=== PATIENT | male | born 1985 | race African-American/Black ===

== ENCOUNTER 2019-01-08 04:32 | Emergency (ER) | payer OTHER ==
[~2019-01-08] VITALS: Ht 165.1 cm; Wt 70.3 kg
[2019-01-08 04:32] VITALS: BP 151/96
--- NOTE | 2019-01-08 04:32 | NUR ---
PT WEN HEBERT. TAKEN TO BED 12
--- NOTE | 2019-01-08 04:40 | NUR ---
Dr. Lopez examining patient.
[2019-01-08] MEDS ORDERED: NACL 0.9% 500 ML IV SCH (04:49)
[2019-01-08] MEDS ORDERED: diphenhydrAMINE 50 MG/ML VIAL IVP ONE (04:50)
[2019-01-08 05:40] LABS: BASOPHILS % (AUTO) 0.3 % (0.0-2.0); EOSINOPHILS % (AUTO) 0.4 % (0.0-4.0); HEMATOCRIT 52.8 % (36-52); HEMOGLOBIN 17.1 g/dL (12.0-18.0); LYMPHOCYTES # (AUTO) 2.5 K/uL (2.0-11.5); LYMPHOCYTES % (AUTO) 21.3 % (20.5-51.1); MEAN CORPUSCULAR HEMOGLOBIN 31 pg (27-31); MEAN CORPUSCULAR HGB CONC 32 g/dL (33-37); MONOCYTES # (AUTO) 0.9 K/uL (0.8-1.0); MONOCYTES % (AUTO) 7.8 % (1.7-9.3); NEUTROPHILS # (AUTO) 8.2 K/uL (1.8-7.7); NEUTROPHILS % (AUTO) 70.2 % (42.2-75.2); PLATELET COUNT (AUTO) 307 K/uL (140-450); RED BLOOD CELL COUNT(AUTO) 5.62 MIL/uL (4.20-6.10); RED CELL DISTRIBUTION WIDTH 13.5 % (11.6-13.7); WHITE BLOOD COUNT (AUTO) 11.7 K/uL (4.8-10.8)
--- NOTE | 2019-01-08 05:42 | NUR ---
X-Ray at bedside.
--- NOTE | 2019-01-08 05:47 | NUR ---
33 YEAR OLD ACCOMPANIED BY MOTHER, SHE STATES PATIENT HAS HAD TROUBLE SPEAKING, NOT EATING, AND NOT SLEEPING FOR THE PAST 2 DAYS. MOTHER STATES PATIENT HAS BEEN INCREASED IN AGITATION. PATIENTS SENTENCES ARE INCOMPREHENSIBLE. PATIENT AOX0, GCS 13 (E4, V3, M6). MOTHER STATES PATIENT IS NORMALLY ABLE TO EXPRESS NEEDS WITHOUT DIFFICULTY AND PERFORM DAILY ADLS. PATIENT IS CALM AND COOPERATIVE, SKIN WARM AND DRY, BREATHING EVEN AND UNLABORED. BED IN LOWEST POSITION, LOCKED, BED RAIL UPX1.
[2019-01-08 05:53] LABS: ANION GAP 16.5 (8-16); CARBON DIOXIDE 24.3 mmol/L (21-32); CREATININE 0.8 mg/dL (0.7-1.3); POTASSIUM 3.8 mmol/L (3.5-5.1)
[2019-01-08 06:08] LABS: ALBUMIN 4.4 g/dL (3.4-5.0); TOTAL BILIRUBIN 0.6 mg/dL (0.0-1.0)
[2019-01-08 06:31] LABS: APPEARANCE,URINE HAZY (CLEAR); BILIRUBIN,URINE 1+ (NEGATIVE); BLOOD, URINE TRACE-I (NEGATIVE); COLOR,URINE YELLOW (YELLOW); LEUKOCYTE ESTERASE ,URINE NEGATIVE (NEGATIVE); NITRITE, URINE NEGATIVE (NEGATIVE); UGLUCOSE NEGATIVE (NEGATIVE)
[2019-01-08 06:53] LABS: RBC,URINE 0-5 /HPF (0-5); WBC,URINE 0-5 /HPF (0-5)
--- NOTE | 2019-01-08 07:15 | NUR ---
Pt report given to DINORAH BAILEY. Transfer of care at this time.
--- NOTE | 2019-01-08 07:30 | NUR ---
Received report from Dustin BAILEY and Yessica BAILEY. Pt is pending discharge but waiting for [facility] which will be arriving around 1100. Pt found resting comfortably in bed with mother at bedside. VSS. All needs addressed.
--- NOTE | 2019-01-08 09:04 | NUR ---
Pt's mother came to nurse's station and states "I can't believe you are sending him home like this. He is not acting right. He is talking about people who aren't even here. I think he needs to go to a psychiatric hospital for 24 hours or something." Mother denies patient being on psychiatric medications. Pt has not seen a psychiatrist in the past and has no diagnosis at this time. I advised mother pt was being discharged with Ativan 2mg prescription. Mother does not want to take patient home at this time. Dr. Higgins made aware.
--- NOTE | 2019-01-08 09:14 | NUR ---
Pt report given to Jayde Kyle Transfer of care at this time.
[2019-01-08] MEDS ORDERED: ZIPRASIDONE MESYLATE 20 MG/ML VIAL IM ONE (09:20)
[2019-01-08] MEDS ORDERED: WATER STERILE 10 ML MC ONE (09:32)
--- NOTE | 2019-01-08 09:55 | NUR ---
Patient discharged with v/s stable. Written and verbal after care instructions given and explained. MOTHER AT BEDSIDE alert, oriented and verbalized understanding of instructions. Wheel Chair Assisted with by TRANSPORT WHO WILL TAKE MOTHER AND PT HOME VIA TRANSPORT VEHICLE. All questions addressed prior to discharge. ID band removed. Patient advised to follow up with PMD. Rx of ATIVAN given. Patient educated on indication of medication including possible reaction and side effects. Opportunity to ask questions provided and answered.
[2019-01-08 10:59] VITALS: BP 125/73
== END 2019-01-08 09:55 | disposition home or self-care (01) ==
LOC: MED 04:32
DX: G47.00 Insomnia, unspecified (principal); R41.0 Disorientation, unspecified; J45.909 Unspecified asthma, uncomplicated; Z91.013 Allergy to seafood; Z88.8 Allergy status to other drugs, medicaments and biological substances
CPT/HCPCS: 36415; 71045; 80053; 81001; 83605; 85025; 87040; 96361; 96372; 96374; 99284; J1200; J3486; J7030; Q0092

== ENCOUNTER 2019-01-10 00:22 | Inpatient (IN) | payer OTHER ==
[~2019-01-10] VITALS: Ht 172.7 cm; Wt 71.7 kg
[2019-01-10 00:22] VITALS: BP 161/90
--- NOTE | 2019-01-10 00:22 | NUR ---
TO BED # 05 BROUGHT IN BY AMBULANCE FOR HOLD WRITTEN BY MINO HOANG
[2019-01-10 01:23] LABS: BASOPHILS % (AUTO) 0.2 % (0.0-2.0); EOSINOPHILS % (AUTO) 0.4 % (0.0-4.0); HEMATOCRIT 52.4 % (36-52); HEMOGLOBIN 16.9 g/dL (12.0-18.0); LYMPHOCYTES # (AUTO) 2.5 K/uL (2.0-11.5); MEAN CORPUSCULAR HEMOGLOBIN 31 pg (27-31); MEAN CORPUSCULAR HGB CONC 32 g/dL (33-37); MEAN CORPUSCULAR VOLUME 94.5 fL (80-94); MONOCYTES # (AUTO) 1.1 K/uL (0.8-1.0); MONOCYTES % (AUTO) 8.1 % (1.7-9.3); NEUTROPHILS # (AUTO) 9.6 K/uL (1.8-7.7); NEUTROPHILS % (AUTO) 72.3 % (42.2-75.2); PLATELET COUNT (AUTO) 280 K/uL (140-450); RED BLOOD CELL COUNT(AUTO) 5.54 MIL/uL (4.20-6.10); RED CELL DISTRIBUTION WIDTH 13.5 % (11.6-13.7); WHITE BLOOD COUNT (AUTO) 13.3 K/uL (4.8-10.8)
[2019-01-10 01:41] LABS: ALBUMIN 4.4 g/dL (3.4-5.0); ANION GAP 16.5 (8-16); ASPARTATE AMINOTRANSFERASE 22 U/L (15-37); CARBON DIOXIDE 27.1 mmol/L (21-32); CHLORIDE 103 mmol/L (98-107); CREATININE 0.9 mg/dL (0.7-1.3); GFR ARICAN-AMERICAN 123 mL/min (>90); GLUCOSE 105 mg/dL (74-106); POTASSIUM 3.6 mmol/L (3.5-5.1); SODIUM SERUM 143 mmol/L (136-145); TOTAL BILIRUBIN 0.4 mg/dL (0.0-1.0); UREA NITROGEN, BLOOD 7 mg/dL (7-18)
[2019-01-10 01:48] LABS: SALICYLATE < 2.8 mg/dL (2.8-20.0)
[2019-01-10 01:49] LABS: ACETAMINOPHEN < 0.5 ug/ml (10-30)
--- NOTE | 2019-01-10 02:16 | NUR ---
resting quietlt with sitter at bedside. cooperative.
--- NOTE | 2019-01-10 02:30 | NUR ---
PT ATTEMPTED TO CLIMB OUT OF BED. ASSISTED BACK AND REORIENTED. SITTER STILL AT BEDSIDE
--- NOTE | 2019-01-10 02:41 | NUR ---
PER TELEPSYCH REYOLI INITIATED
[2019-01-10 02:54] LABS: APPEARANCE,URINE SL CLOUDY (CLEAR); BILIRUBIN,URINE 1+ (NEGATIVE); BLOOD, URINE 1+ (NEGATIVE); COLOR,URINE YELLOW (YELLOW); LEUKOCYTE ESTERASE ,URINE NEGATIVE (NEGATIVE); NITRITE, URINE NEGATIVE (NEGATIVE); PH,URINE 5.5 (5.0-9.0); UGLUCOSE NEGATIVE (NEGATIVE)
[2019-01-10 03:04] LABS: BARBITURATE, URINE NEG. ng/ml (NEG <=200); BENZODIAZEPINE, URINE NEG. ng/mL (NEG <=200); CANNABINOID, URINE NEG. ng/mL (NEG <=50); COCAINE, URINE NEG. ng/mL (NEG <=300); OPIATE, URINE NEG. ng/mL (NEG <=2000); PHENCYCLIDINE SCREEN,URINE NEG. ng/mL (NEG <=25)
[2019-01-10 03:11] LABS: RBC,URINE 0-5 /HPF (0-5); WBC,URINE 0-5 /HPF (0-5)
[2019-01-10] MEDS ORDERED: ZIPRASIDONE MESYLATE 20 MG/ML VIAL IM ONE ×2 (03:50→13:35)
--- NOTE | 2019-01-10 04:14 | NUR ---
MOTHER PHONED FOR UPDATE, SHE STATES THAT HE'S BEEN ACTING UP AT HOME AND HAS BEEN REFUSING FOOD. MOTHERS PHONE # [phone]
--- NOTE | 2019-01-10 05:08 | NUR ---
pt sleeping now, sitter at bedside
--- NOTE | 2019-01-10 05:23 | NUR ---
spoke to telepsych. updated him on pt's complaint and my discussion with his mother. pt is sleeping now after medications
--- NOTE | 2019-01-10 05:47 | NUR ---
telepsych requested that a new consult be placed when patient is awake. notified Dr Higgins
--- NOTE | 2019-01-10 06:28 | NUR ---
pt resting. waiting for am psych consult
--- NOTE | 2019-01-10 06:44 | NUR ---
[facility] received pt packet via fax. Will begin looking for placement at this time. Will contact with any updates. [facility]:
--- NOTE | 2019-01-10 07:35 | NUR ---
Patient recieved, asleep, geodon IM efective patient calm/ quiet. Per report patient is pending behavioral placement.
--- NOTE | 2019-01-10 08:30 | NUR ---
ASSUMED CARE OF PATIENT FROM LEO ANDERSON. PT IS SLEEPING. ASROUSABLE TO NAME. WILL CONTINUE TO MONITOR.
--- NOTE | 2019-01-10 09:30 | NUR ---
Telepsychiatry consult ordered as requested by Dr. Sesay.
--- NOTE | 2019-01-10 09:55 | NUR ---
PT SPEAKING TO TELEPSYCH AT THIS TIME
--- NOTE | 2019-01-10 10:26 | NUR ---
SPOKE WITH DR ROQUE REGARDING PT CONDITION AND CONSULT. DR VEGA TO CONTINUE [id number]. CONSULT TO BE FAXED.
--- NOTE | 2019-01-10 10:50 | NUR ---
PT NOTED TO BE CLIMBING OUT OF BED, REDIRECTED PT TO BED. 1:1 SITTER REMAINS AT BEDSIDE.
--- NOTE | 2019-01-10 10:55 | NUR ---
PT NOTED TO BE CLIMBING OUT OF BED, REDIRECTED PT TO BED WITH HELP OF 1:[address] JAIME VAZQUEZ.
[2019-01-10] MEDS ORDERED: LORazepam 2 MG/ML VIAL IM ONE (11:00)
--- NOTE | 2019-01-10 11:00 | NUR ---
ORDER FOR 2MG ATIVAN IM RECIEVED FOR INCREASED AGITATION.
--- NOTE | 2019-01-10 11:05 | NUR ---
MEDICATED ORDERED. WILL CONTINUE TO MONITOR. 1:[address]
--- NOTE | 2019-01-10 11:24 | NUR ---
SPOKE TO SIMON FROM [facility] CALL [place]. FAX PAPERWORK TO [phone]
--- NOTE | 2019-01-10 11:26 | NUR ---
S/W Vi and states that patient is medically cleared. Also s/w Bharat and stated patient did have a tele-psych consult and to continue placement. He will fax consult from tele-psych
--- NOTE | 2019-01-10 11:29 | NUR ---
[facility] s/w Darrell, packet fax [facility] s/ w An, packet fax
--- NOTE | 2019-01-10 11:52 | NUR ---
[facility] s/w Syed, no beds but packet fax for wait list [facility] s/w Lexus no beds but packet fax for wait list
--- NOTE | 2019-01-10 11:56 | NUR ---
[facility] s/w Raul, no beds. Units are full
--- NOTE | 2019-01-10 12:20 | NUR ---
PT WHEELCHAIR ASSISTED TO RESTROOM WITH RN AND EMT AT PT SIDE
--- NOTE | 2019-01-10 12:39 | NUR ---
PT RESTING IN BED. PT CALM AND COOPERATIVE. VSS. WILL CONTINUE TO MONITOR.
--- NOTE | 2019-01-10 13:16 | NUR ---
Received call back from An from [facility], not able to medically accommodate. [facility] s/w MD Cristian still not finish with making rounds
--- NOTE | 2019-01-10 13:19 | NUR ---
[facility] s/w Mariam, no beds but packet fax for transfer list
--- NOTE | 2019-01-10 13:32 | NUR ---
PT TRYING TO GET OUT OF BED, REPOSITIONED IN BED FOR COMFORT. DR SANDOVAL MADE AWARE.
[2019-01-10] MEDS ORDERED: WATER STERILE 10 ML MC ONE (13:38)
--- NOTE | 2019-01-10 14:01 | NUR ---
S/W Jessie JACOBS regarding patient. Asked Jessie at what point does SS services get involve with patient care. Gave her a short report of this patient and she stated this is something that she might need to f/up on. She will call back with more information.
--- NOTE | 2019-01-10 14:24 | NUR ---
PT CALM, RESTING WITH EYES CLOSED. VISIBLE RISE AND FALL OF THE CHEST. RR EVEN AND UNLABORED. WILL CONTINUE TO MONITOR.
--- NOTE | 2019-01-10 14:49 | NUR ---
Received call back from Jessie Silver CM to give more information on patient. Stated that patient does have [facility]. Call [facility] at [phone]. Left message for a call back regardng assistance with placement
--- NOTE | 2019-01-10 15:20 | NUR ---
PT RESTING IN BED COMFORTABLY. CALM AND COOPERATIVE. WILL CONTINUE TO MONITOR.
[2019-01-10] MEDS ORDERED: ACETAMINOPHEN 325 MG TAB PO PRN (16:10)
[2019-01-10] MEDS ORDERED: LORazepam 1 MG TAB PO PRN (16:10)
--- NOTE | 2019-01-10 16:12 | NUR ---
Patient will be admitted to care of DR. HOWE. Admited to TELE. Will go to room 109B. Belongings list completed. Report to LEO PINEDA.
--- NOTE | 2019-01-10 16:14 | NUR ---
TRANSFER OF CARE AND REPORT GIVEN TO LEO PINEDA
--- NOTE | 2019-01-10 16:20 | NUR ---
RECEIVED PT FROM ED NURSE JOELLE. PT IS AWAKE, TALKING TO HIMSELF, PRAYING, AND GESTURING WITH HIS HANDS. PT'S SPEECH IS FAST BUT CLEAR, MOST OF HIS SPEECH IS FOCUSED ON CAODAISM SABINA, SOME OF HIS SPEECH IS NONSENSICAL. NO IV SITE NOTED. PER ED NURSE, PT IS WHEELCHAIR BOUND, BUT IS ABLE TO PIVOT WHILE STANDING UP. ALL PT'S BELONGINGS ARE WITH SECURITY. FALL PRECAUTIONS PUT IN PLACE. PT WAS ABLE TO ANSWER CORRECTLY HIS FULL NAME, , AND CURRENT YEAR. PT DID NOT ANSWER WHERE HE IS, OR WHAT MONTH IT IS. PT IS ON ROOM AIR . SKIN IS INTACT. SITTER (LEO PINEDA) IS AT THE ROOM.
--- NOTE | 2019-01-10 16:30 | NUR ---
VS UPON ADMISSION: BP 142/89, HR 111, O2 99, TEMP 97.8, RR 20.
--- NOTE | 2019-01-10 17:25 | NUR ---
S/W bedside nurse for patient Angie. Patient on tele until a placement is found for patient for inpatient psych. Called [facility] and office is closed. Called [phone] for publication specialist manglarry. S/W Amaris who was the call center for emergency. Stated that they only handle emergencies during after hours. Need to call back during business hours of 8-5. Need IRC's assistance with placement
[2019-01-10 17:35] VITALS: BP 142/89
--- NOTE | 2019-01-10 19:25 | NUR ---
SPOKE TO PT'S MOTHER KAM ON THE PHONE, SHE SAID SHE DOES NOT WANT PT TO HAVE FLU OR PNA VACCINES. SHE WANTS FULL CODE FOR PT. SHE ALSO SAID THAT PT DOES BREATHING TX'S AT HOME NEEDED, FOR WHEN HE "GETS A COLD". PT'S MOTHER WAS NOT EXACTLY CLEAR ON WHAT OTHER MEDS PT TAKES AT HOME, BUT SHE MENTIONED KEPPRA, BUT SHE WAS NOT SURE OF THE DOSE. SHE SAID SHE MIGHT'VE SENT HIS KEPPRA MED WITH HIM TO THE HOSPITAL. ALL PT'S STUFF IS WITHIN SECURITY. I ENDORSED THIS TO NIGHT NURSE.
--- NOTE | 2019-01-10 19:26 | NUR ---
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 PT ON 5150 HOLD. SITTER AT BEDSIDE. PT IS AWAKE, TALKING TO HIMSELF, PRAYING, AND GESTURING WITH HIS HANDS. PT'S SPEECH IS CLEAR, MOST OF HIS SPEECH IS FOCUSED ON SAMARITAN SABINA, SOME OF HIS SPEECH IS NONSENSICAL. NO IV. PER RN PT IS WHEELCHAIR BOUND, BUT IS ABLE TO PIVOT WHILE STANDING UP. ALL PT'S BELONGINGS ARE WITH SECURITY. FALL PRECAUTIONS PUT IN PLACE. POC DISCUSSED WITH PT. WILL CONTINUE TO MONITOR
--- NOTE | 2019-01-10 19:58 | NUR ---
SPOKE WITH PATIENTS MOTHER REGARDING HOME MEDS. PER MOTHER HES ON KEPPRA 500MG BID AND ALBUTEROL PRN.
--- NOTE | 2019-01-10 20:50 | NUR ---
SPOKE WITH MOTHER AGAIN. SHE EXPRESSED SHE WANTS HER SON TRANSFERRED CLOSER TO HOME IF POSSIBLE AT [place] OR [place]. EXPLAINED MD AND PSYCH MD WILL SEE HIM TOMORROW. AND SOAP DRIER OPERATOR WILL WORK ON FINDING A BED FOR HIM AND CANNOT GUARANTEE WHERE IT'LL BE . SHE ALSO EXPRESSED DOESN'T WANT SISTER TO VISIT HIM.
--- NOTE | 2019-01-10 21:12 | NUR ---
PATIENT IS RESTING COMFORTABLY AND IS CALM IN BED TALKING TO HIMSELF. 1:1 SITTER AT BEDSIDE. WILL CONTINUE TO MONITOR
[2019-01-10] MEDS: LORazepam 2 MG/ML VIAL IM/IVP PRN (23:11)
--- NOTE | 2019-01-10 23:11 | NUR ---
ADMINISTERED PRN 1MG ATIVAN IM FOR AGITATION. PATIENT KEEPS TRYING TO GET OUT OF BED AFTER NUMEROUS ATTEMPT TO TALK AND ASSIST TO LAY DOWN. PT TALKING TO SELF, "LORD WHAT IS YOUR COMMAND, LEAD ME I AM YOUR HELMET" 1:1 SITTER. WILL CONTINUE TO MONITOR.
[2019-01-11] VITALS: BP 137/82
--- NOTE | 2019-01-11 00:05 | NUR ---
VITAL SIGNS ARE WITHIN NORMAL LIMITS. ALL NEEDS MET AT THIS TIME. SAFETY MEASURES ARE IN PLACE. 1:1 SITTER.
[2019-01-11] MEDS ORDERED: KEP500 PO (01:43)
--- NOTE | 2019-01-11 02:05 | NUR ---
PATIENT IS AGITATED SPEAKING TO SELF AND HITTING SELF. TALKED TO PATIENT AND ATTEMPT TO CALM DOWN. PT REMAINS WITH 1:1 SITTER. AAOX2-3. SECURITY WAS CALLED TO CALM PATIENT.
[2019-01-11] MEDS: LORazepam 2 MG/ML VIAL IM/IVP PRN (03:15)
--- NOTE | 2019-01-11 05:00 | NUR ---
PATIENT TALKING TO HIMSELF MUMBLING UNABLE TO UNDERSTAND. ABLE TO FOLLOW SIMPLE COMMANDS. PT REMAIN LAYING DOWN IN BED WITH 1:1 SITTER. WILL ROUND FREQUENTLY
--- NOTE | 2019-01-11 07:25 | NUR ---
GAVE BEDSIDE REPORT TO DAY RN. PT ENDORSED IN STABLE CONDITION.
--- NOTE | 2019-01-11 07:38 | NUR ---
RECEIVED BEDSIDE REPORT FROM DAM ATTENDANT RN. 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 PT ON 5150 HOLD. SITTER AT BEDSIDE. PT IS AWAKE, TALKING TO HIMSELF, PRAYING, AND GESTURING WITH HIS HANDS. PT'S SPEECH IS CLEAR, MOST OF HIS SPEECH IS FOCUSED ON BAPTISM SABINA, SOME OF HIS SPEECH IS NONSENSICAL. NO IV. PER RN PT IS WHEELCHAIR BOUND, BUT IS ABLE TO PIVOT WHILE STANDING UP. PT ON RESTRAINTS DUE TO HITTING SELF AND OTHERS. ALL PT'S BELONGINGS ARE WITH SECURITY. FALL PRECAUTIONS PUT IN PLACE. POC DISCUSSED WITH PT. WILL MONITOR PT FREQUENTLY. SITTER AT BEDSIDE 1:1.
--- NOTE | 2019-01-11 08:18 | NUR ---
PATIENT HAS BEEN SCREENED AND CATEGORIZED LOW NUTRITION RISK. PATIENT WILL BE SEEN WITHIN 7 DAYS OF ADMISSION. 01/17/[address]
--- NOTE | 2019-01-11 08:41 | NUR ---
RECIEVED REPORT FROM NOC SHIFT AT THIS TIME THERE ARE NO NEW UPDATES, [facility] WILL CONT TO MONITOR AND ASSIST IN PLACEMENT Addendum: 01/11/19 at 0901 by Carmen Stevens CM DC PLANNING 33 YRS OLD MALE PT ADMITTED FROM HOME WITH A DX OF SUICIDAL IDEATION . PT HAS A HX OF SEIZURE, ASTHMA AND MENTAL ILLNESS. PT LIVES WITH FAMILY AND TAKING DILANTIN FOR HIS SEIZURE. WBC 13.3 LEUKOCYTOSIS MD TO EVALUATE , PSYCH CONSULT FOR SUICIDAL IDEATION AND PSYCHOSIS . SLOT FLOOR SUPERVISOR TO EVALUATE PT. ADMINISTERED ATIVAN 1MG IVP FOR AGITATION. DC PLAN TO TRANSFER HIM TO IN PT PSYCH UNIT WHEN BED AVAILABLE. [facility]IORAL CENTER ARE LOOKING FOR A PSYCH FACILITY AT THIS TIME. CM TO FOLLOW
--- NOTE | 2019-01-11 09:47 | NUR ---
PT RESTING IN BED. ALL NEEDS MET. WILL CONTINUE TO ROUND FREQUENTLY ON PT. BED IN LOW POSITION, CALL LIGHT WITHIN REACH.
--- NOTE | 2019-01-11 11:32 | NUR ---
PT RESTING IN BED. SITTER AT BEDSIDE 1:1. ALL NEEDS MET. WILL CONTINUE TO ROUND FREQUENTLY ON PT.
--- NOTE | 2019-01-11 12:47 | NUR ---
called [facility] at [phone],left message for someone to call [facility] back re; possible placement for this pt
--- NOTE | 2019-01-11 13:00 | NUR ---
FOLLOWED UP WITH DR. KEE REGARDING THE CONSULT, DR. KEE STATED HE WILL TRY TO COME SEE GENET ALVAREZ.
--- NOTE | 2019-01-11 13:28 | NUR ---
PT SLEEPING IN BED. ALL NEEDS. ALL NEEDS ME. WILL CONTINUE TO ROUND FREQUENTLY ON PT. BED IN LOW POSITION, CALL LIGHT WITHIN REACH.
--- NOTE | 2019-01-11 15:36 | NUR ---
THIS MAILING JOGGER CALLED [facility] AT [phone], HAD TO LEAVE MESSAGE NO ANSWERE TO SEE IF THEY CAN ASSIST WITH PLACEMENT, AWAITING CALL BACK
--- NOTE | 2019-01-11 15:49 | NUR ---
PT RESTING IN BED. ALL NEEDS MET. WILL CONTINUE TO ROUND FREQUENTLY ON PT.
[2019-01-11 16:00] VITALS: BP 138/75
--- NOTE | 2019-01-11 17:42 | NUR ---
PT RESTING IN BED. ALL NEEDS MET. WILL CONTINUE TO ROUND ON PT,
--- NOTE | 2019-01-11 19:20 | NUR ---
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 PT ON 5150 HOLD. SITTER AT BEDSIDE. PT IS AWAKE, STARING AT CEILING TALKING TO HIMSELF, PRAYING, AND GESTURING WITH HIS HANDS. PT'S SPEECH IS CLEAR, MOST OF HIS SPEECH IS FOCUSED ON [place] SABINA, SOME OF HIS SPEECH IS NONSENSICAL. WHEN ADDRESS PATIENT HE REMAINS SILENT. DOES NOT ANSWER SIMPLE QUESTIONS. WILL TRY AGAIN LATER. NO IV. RESPIRATIONS ARE EQUAL AND UNLABORED ON ROOM AIR. PER RN PT IS WHEELCHAIR BOUND, BUT IS ABLE TO PIVOT WHILE STANDING UP. ALL PT'S BELONGINGS ARE WITH SECURITY. FALL PRECAUTIONS PUT IN PLACE. POC DISCUSSED WITH PT. WILL CONTINUE TO MONITOR
--- NOTE | 2019-01-11 19:47 | NUR ---
ENDORSED PT TO INTERNATIONAL MARKETING INTERN FOR CONTINUITY OF CARE. PT IN STABLE CONDITION.
[2019-01-11] MEDS: levETIRAcetam 500 MG TAB PO SCH (20:18)
--- NOTE | 2019-01-11 20:18 | NUR ---
ADMINISTERED YANET ALMEIDA. PT TOLERATED WELL. PATIENT ON SOFT WRIST RESTRAINTS ASSESS CIRCULATION. PATIENT ATTEMPTED TO GRAB MY ARM AND YELLED, " IN THE LORDS NAME LEAVE MARIBEL AND DON'T COME BACK" ORIENTED PATIENT TO ROOM,STAFF. HAS 1:1 SITTER. WILL CONTINUE TO MONITOR.
--- NOTE | 2019-01-11 22:11 | NUR ---
PT RESTING IN BED. ALL NEEDS MET. WILL CONTINUE TO ROUND FREQUENTLY ON PT. BED IN LOW POSITION, CALL LIGHT WITHIN REACH.
[2019-01-11 23:28] VITALS: BP 143/82
--- NOTE | 2019-01-11 23:30 | NUR ---
VITAL SIGNS ARE WITHIN NORMAL LIMITS. ALL SAFETY MEASURES ARE IN PLACE. 1:1 SITTER.
[2019-01-12] MEDS: LORazepam 2 MG/ML VIAL IM/IVP PRN (01:32)
--- NOTE | 2019-01-12 01:32 | NUR ---
PER SITTER PATIENT VERY AGITATED HITTING HIS HEAD ON SIDE RAILS. ORIENTED PATIENT TO ROOM AND STAFF. PT SILENT WHEN TALKING TO HIM. ADMINISTERED PRN ATIVAN. NO SIGNS OF INJURY. ALL NEEDS MET AT THIS TIME. SAFETY MEASURES ARE IN PLACE. WILL CONTINUE TO MONITOR.
--- NOTE | 2019-01-12 01:34 | NUR ---
Monitoring bed placement through the evening there are no beds, will continue to search. Many facilities expecting DC's in the AM
--- NOTE | 2019-01-12 02:25 | NUR ---
PATIENT IS SLEEPING COMFORTABLY IN BED CHEST RISE AND FALL. CONT ON 1:1 SITTER.
--- NOTE | 2019-01-12 04:10 | NUR ---
PATIENT IS RESTING COMFORTABLY IN BED. NO S/S OF DISTRESS. ALL NEEDS MET AT THIS TIME. SITTER IS AT BEDSIDE. PATIENT REMAINS ON RESTRAINTS.
--- NOTE | 2019-01-13 07:30 | NUR ---
RECEIVED REPORT FROM STOCKROOM SUPERVISOR NURSE. PATIENT LYING DOWN IN BED SLEEPING, AROUSABLE BY VOICE. NO DISTRESS NOTED. DENIES ANY PAIN. AAOX1, CALM, SKIN INTACT. RESPIRATIONS EVEN, UNLABORED ON ROOM AIR. ABDOMEN SOFT. REVIEWED PLAN OF CARE WITH PATIENT. PATIENT VERBALIZED UNDERSTANDING. SAFETY MEASURES IN PLACE, CALL LIGHT WITHIN REACH. WILL CONTINUE TO MONITOR.
[2019-01-13] MEDS: levETIRAcetam 500 MG TAB PO SCH (21:00)
[2019-01-13] MEDS: OLANZapine 2.5 MG TAB PO SCH (21:00)
[2019-01-14 06:57] VITALS: BP 163/88
[2019-01-14] MEDS: levETIRAcetam 500 MG TAB PO SCH ×2 (09:00→20:42)
--- NOTE | 2019-01-14 09:00 | NUR ---
PATIENT LYING DOWN IN BED, NO DISTRESS NOTED. SITTER AT BEDSIDE. CONDITION UNCHANGED. WILL CONTINUE TO MONITOR.
[2019-01-14 10:38] LABS: BASOPHILS % (AUTO) 0.3 % (0.0-2.0); EOSINOPHILS # (AUTO) 0.1 K/uL (0-0.4); EOSINOPHILS % (AUTO) 0.5 % (0.0-4.0); HEMOGLOBIN 16.5 g/dL (12.0-18.0); LYMPHOCYTES # (AUTO) 2.2 K/uL (2.0-11.5); LYMPHOCYTES % (AUTO) 18.5 % (20.5-51.1); MEAN CORPUSCULAR HEMOGLOBIN 30 pg (27-31); MEAN CORPUSCULAR HGB CONC 32 g/dL (33-37); MEAN CORPUSCULAR VOLUME 94.2 fL (80-94); MONOCYTES # (AUTO) 1.2 K/uL (0.8-1.0); MONOCYTES % (AUTO) 10.1 % (1.7-9.3); NEUTROPHILS # (AUTO) 8.4 K/uL (1.8-7.7); NEUTROPHILS % (AUTO) 70.6 % (42.2-75.2); PLATELET COUNT (AUTO) 299 K/uL (140-450); RED BLOOD CELL COUNT(AUTO) 5.41 MIL/uL (4.20-6.10); RED CELL DISTRIBUTION WIDTH 13.8 % (11.6-13.7)
--- NOTE | 2019-01-14 11:30 | NUR ---
PATIENT SITTING IN BED WITH LUNCH TRAY IN FRONT. ART CONSERVATOR ASSISTING PATIENT TO EAT. WILL CONTINUE TO MONITOR.
[2019-01-14] MEDS: OLANZapine 2.5 MG TAB PO SCH ×2 (12:08→20:41)
--- NOTE | 2019-01-14 14:00 | NUR ---
MOTHER AT BEDSIDE. NO DISTRESS NOTED. WILL CONTINUE TO MONITOR.
[2019-01-14 16:00] VITALS: BP 146/94
--- NOTE | 2019-01-14 16:00 | NUR ---
PATIENT LYING DOWN IN BED, CALM. SITTER AT BEDSIDE. CONDITION UNCHANGED. WILL CONTINUE TO MONITOR.
--- NOTE | 2019-01-14 19:15 | NUR ---
GAVE REPORT TO RN DIGESTIVE NURSE FOR CONTINUITY OF CARE. PATIENT IN STABLE CONDITION.
--- NOTE | 2019-01-14 19:16 | NUR ---
REPORT RECEIVED FROM AM NURSE AT BEDSIDE. PT IN STABLE CONDITION. AAOX1-2. INTRODUCED SELF TO PT. BOARD UPDATED. NO COMPLAINTS OF PAIN. NO SOB. AFEBRILE. PT IS AMBULATORY. PT HAS CEREBRAL PALSY. PT HAS NO IV SITE AVAILABLE. MD AWARE. SKIN WARM, DRY, AND INTACT WITH NO OPEN WOUNDS. BED LOCKED IN LOW POSITION. CALL BRAND WITHIN REACH. SAFETY PRECAUTION IN PLACE. ALL NEEDS MET AT THIS TIME.
--- NOTE | 2019-01-14 20:41 | NUR ---
ZYPREXA GIVEN PO WITH APPLESAUCE. PT TOLERATED WELL.
--- NOTE | 2019-01-14 22:00 | NUR ---
PT AWAKE IN BED AND ALERT. NO S/S OF DISTRESS NOTED. 1:1 SITTER AT BEDSIDE. WILL CONTINUE TO MONITOR.
--- NOTE | 2019-01-14 23:30 | NUR ---
PT AWAKE AND ALERT LAYING IN BED. NO S/S OF DISTRESS NOTED. 1:1 SITTER. WILL CONTINUE TO MONITOR.
[2019-01-15] VITALS: BP 153/89
--- NOTE | 2019-01-15 01:20 | NUR ---
PT AWAKE AND ALERT LAYING IN BED. NO S/S OF DISTRESS NOTED. NO COMPLAINTS OF PAIN. NO SOB. AFEBRILE. WILL CONTINUE TO MONITOR.
--- NOTE | 2019-01-15 03:35 | NUR ---
PT AWAKE AND ALERT ATTEMPTS TO GET OUT OF BED SOMETIMES. NO S/S OF DISTRESS NOTED. 1:1 SITTER. WILL CONTINUE TO MONITOR.
--- NOTE | 2019-01-15 05:00 | NUR ---
PT LAYING IN BED NOT SLEEPING. NO S/S OF DISTRESS NOTED. 1:1 SITTER. WILL CONTINUE TO MONITOR.
--- NOTE | 2019-01-15 06:45 | NUR ---
PT SLEEPING COMFORTABLY BUT AROUSABLE. PT IN STABLE CONDITION.
--- NOTE | 2019-01-15 07:22 | NUR ---
Shift report received from bakery worker nurse. Pt is in bed in stable condition. Call light in reach.
[2019-01-15 08:00] VITALS: BP 155/94
[2019-01-15] MEDS: OLANZapine 2.5 MG TAB PO SCH ×2 (10:01→22:24)
[2019-01-15] MEDS: levETIRAcetam 500 MG TAB PO SCH ×2 (10:01→22:25)
[2019-01-15 16:00] VITALS: BP 145/94
--- NOTE | 2019-01-15 19:05 | NUR ---
RECD. RESTING SLEEPING COMFORTABLY IN BED BUT EASILY AROUSABLE. RESPIRATION EVEN AND UNLABORED. NO IV LINE, REFUSED IV INSERTION ENDORSED BY AM NURSE. SAFETY MEASURES ENFORCED. SIDE RAILS WITH PADS. ON SEIZURE PRECAUTION. 1:1 SITTER MONITORING PATIENT BEHAVIOR. NO APPEARANCE OF PAIN NOTED 0/10.
[2019-01-15 20:00] VITALS: BP 162/83
--- NOTE | 2019-01-15 21:55 | NUR ---
NIGHT PHARMACY CALLED AND INQUIRED HOW COME PATIENT HAVE TWO ORDERS FOR KEPPRA, ONE BID AND ANOTHER AT HS AT 2100. IF PATIENT IS ALLERGIC TO KEPPRA MEDICATION SHOULD BE TAKEN OUT. ENDORSED BY AM NURSE MOTHER SAYS PATIENT IS ALLERGIC TO KEPPRA.
--- NOTE | 2019-01-15 22:00 | NUR ---
INQUIRED TO MOTHER BY PHONE IF PT IS ALLERGIC TO KEPPRA, STATED THAT SINCE THE TIME PATIENT TOOK KEPPRA, PT BECOMES MORE LETHARGIC, CONFUSED AND UNABLE TO TAKE GOOD CARE OF HIMSELF. WANTS KEPPRA TO BE TAKEN OUT. WILL INFORM .
--- NOTE | 2019-01-15 22:20 | NUR ---
SPOKE WITH DR. FABIAN REGARDING PROBLEM WITH KEPPRA, STATED GIVE TONIGHT DOSE AND WILL DECIDE TOMORROW IF MEDICATION WILL BE DISCONTINUED.
--- NOTE | 2019-01-16 02:47 | NUR ---
Patient's Plan of Care was discussed and reviewed with LANI: SUKUMAR
[2019-01-16] MEDS: LORazepam 2 MG/ML VIAL IM/IVP PRN (03:10)
--- NOTE | 2019-01-16 03:10 | NUR ---
AGITATED, TRYING TO GET OUT OF BED. MEDICATED WITH ATIVAN ORDERED.
--- NOTE | 2019-01-16 04:00 | NUR ---
NO AGITATION NOTED, SLEEPING COMFORTABLY IN BED. SITTER CONTINUE MONITORING PATIENT FOR SAFETY.
--- NOTE | 2019-01-16 07:15 | NUR ---
NO SEIZURE NOTED DURING SHIFT. CONDITION REMAIN STABLE. ENDORSED TO AM SHIFT NURSE FOR CONTINUITY OF CARE.
--- NOTE | 2019-01-16 07:30 | NUR ---
RECEIVED REPORT FROM NIGHT RN. PATIENT IS ON 5150 HOLD FOR SUICIDAL IDEATION. PATIENT IS SITTING UP IN BED, ON ROOM AIR, VISIBLE CHEST RISE AND FALL. NO COMPLAINTS AT THIS TIME, NO AGITATION. PATIENT HAS 1:1 SITTER. NO IV LINE IN PLACE. WILL REVIEW PLAN OF CARE AND CONTINUE FOLLOWED.
[2019-01-16 08:00] VITALS: BP 124/71
--- NOTE | 2019-01-16 08:29 | NUR ---
Received report from PM shift. Will follow up with surrounding Psych facilities to locate appropriate placement.
[2019-01-16] MEDS: levETIRAcetam 500 MG TAB PO SCH ×2 (09:00→21:00)
--- NOTE | 2019-01-16 09:00 | NUR ---
ADMINISTERED MORNING MEDICATION CRUSHED AND MIXED WITH PUDDING. PT TOLERATED WELL. DID NOT ADMINISTER MORNING KEPPRA D/T MOTHERS CONCERNS ABOUT PATIENT BEING ALLERGIC TO RX.
[2019-01-16] MEDS: OLANZapine 2.5 MG TAB PO SCH ×2 (09:04→21:40)
--- NOTE | 2019-01-16 10:01 | NUR ---
Orthopedically Impaired Teacher Note: I called and spoke with Stephanie Goff / from [facility] (The individuals being served by [facility] have various Intellectual Disabilities including cerebral palsy), I asked her if she is able to evaluate patient and determine if he appropriate for one of their facilities. She referred me to speak with her director Gwendolyn Jack , I called and spoke with Gwendolyn. Per Gwendolyn, she is going to contact Riana Vallecillo' director at [facility] . Riana Vallecillo told me last week she will not be available today (01/16/19), Gwendolyn made aware. Addendum: 01/16/19 at 1045 by Jessie Vicente CM Received proof of conservatorship for the patient. The court paper shows pt's mother, Danae Rahman, as the conservator. Letter was filed in patient's chart. Jessie Vicente, [facility] Ext [phone]
--- NOTE | 2019-01-16 12:17 | NUR ---
Waiting for Katiana Vallecillo director of [facility] to approve patient to be evaluated [facility]. Notes by SW stated that Katiana Vallecillo will be off today (01/16/2019)
--- NOTE | 2019-01-16 13:43 | NUR ---
PATIENT IS SITTING UP IN BED. NO SIGNS OF RESP DISTRESS. SITTER AT BEDSIDE 1:1.
--- NOTE | 2019-01-16 15:49 | NUR ---
PATIENT RESTING QUIETLY IN BED, NO AGITATION NOTED. NO COMPLAINTS AT THIS TIME.
[2019-01-16 16:00] VITALS: BP 147/89
--- NOTE | 2019-01-16 16:11 | NUR ---
Image Archivist Note: I called Gwendolyn Jack from [facility] (The individuals being served by [facility] have various Intellectual Disabilities including cerebral palsy), no answer, left message.
--- NOTE | 2019-01-16 16:25 | NUR ---
Per SW documentation, has been attempting to call Gwendolyn Jack from [facility]. No answer. Will continuw to monitor documentation
--- NOTE | 2019-01-16 17:17 | NUR ---
Supervisor Weaving Note: Per Barratte Operator Jessie Vicente of [employer], she received patient's conservator documents and she included documents in patient's chart. She stated she also faxed documents to [facility]. I spoke with Carisa from [facility], I was able to confirmed she received conservator documents faxed by Barratte Operator Jessie Vicente.
--- NOTE | 2019-01-16 19:00 | NUR ---
RECD. RESTING IN BED, AWAKE, JUST STARING BLANKLY. DOES NOT RESPOND WHEN INQUIRED HOW HE IS. DID NOT EAT HIS DINNER. ENCOURAGED TO EAT BUT DID NOT SAY ANYTHING. SAFETY MEASURES ENFORCED. SIDE RAILS WITH PADS, ON SEIZURE PRECAUTION. 1:1 SITTER MONITORING PATIENT FOR SAFETY NEAR THE DOOR, WILL TRY TO FEED PATIENT. NO APPEARANCE OF PAIN NOTED, FLACC - 0.
--- NOTE | 2019-01-16 19:30 | NUR ---
FEED BY THE SITTER, ABLE TO EAT 90%. MOTHER CALLED, UPDATED ON WHAT PATIENT IS DOING.
[2019-01-16] MEDS ORDERED: OLANZapine 2.5 MG TAB ONE (21:13)
--- NOTE | 2019-01-16 22:00 | NUR ---
NO ATTEMPT TO GET OUT OF BE NOTED.
[2019-01-17] VITALS: BP 142/85
--- NOTE | 2019-01-17 | NUR ---
SLEEPLING COMFORTABLY IN BED.
--- NOTE | 2019-01-17 07:15 | NUR ---
NO SEIZURE NOTED DURING SHIFT. ENDORSED TO AM SHIFT NURSE FOR CONTINUITY OF CARE.
--- NOTE | 2019-01-17 07:15 | NUR ---
RECEIVED REPORT AT BEDSIDE FROM NIGHTSHIFT NURSE. PT LYING IN BED. SKIN WARM AND DRY TO TOUCH. RESPIRATIONS EVEN AND UNLABORED WITH NO SOB OR RESPIRATORY DISTRESS. NO COMPLAINTS OR CONCERNS AT THIS TIME. SAFETY MEASURES IN PLACE: HOB ELEVATED, SIDE RAILS PADDED, BED ALARM, ACTIVATED, BED IN LOWEST POSITION, AND CALL LIGHT WITHIN REACH. WILL CONTINUE TO MONITOR Addendum: 01/17/19 at 0746 by Lana Razo RN WRONG ENTRY
--- NOTE | 2019-01-17 07:20 | NUR ---
RECEIVED REPORT AT BEDSIDE FROM NIGHTSHIFT NURSE. PT LYING IN BED. SKIN WARM AND DRY TO TOUCH. RESPIRATIONS EVEN AND UNLABORED WITH NO SOB OR RESPIRATORY DISTRESS. NO COMPLAINTS OR CONCERNS AT THIS TIME. SAFETY MEASURES IN PLACE: HOB ELEVATED, SIDE RAILS PADDED, BED ALARM, ACTIVATED, BED IN LOWEST POSITION, AND CALL LIGHT WITHIN REACH. WILL CONTINUE TO MONITOR
[2019-01-17 08:00] VITALS: BP 153/75
--- NOTE | 2019-01-17 09:15 | NUR ---
PT IS RESTING ON BED AT THIS TIME. NO SIGNS OF DISTRESS NOTED. SAFETY MEASURES IN PLACE. BED IN LOW POSITION AND 1:1 SITTER AT BEDSIDE.
[2019-01-17] MEDS ORDERED: OLANZapine 2.5 MG TAB ONE ×2 (09:51→20:30)
[2019-01-17] MEDS: OLANZapine 2.5 MG TAB PO SCH ×2 (10:01→20:35)
--- NOTE | 2019-01-17 10:04 | NUR ---
PT LYING IN BED UPON ARRIVAL. ADMINISTERED MEDICATION PRESCRIBED PER MD ORDER. PATIENT TOLERATED WELL. MEDICATION EDUCATION PERFORMED. NO COMPLICATIONS OR CONCERNS AT THIS TIME. SAFETY MEASURES IN PLACE. WILL CONTINUE TO MONITOR.
--- NOTE | 2019-01-17 10:56 | NUR ---
Cardiac Cath Technologist Note: I called Sterile Processing Manager Riana Vallecillo from [facility], no answer, left message. I also dial main phone number of [facility] , puff iron operator did not answer, I left a message. I called and spoke with Gwendolyn Jack from [facility] (The individuals being served by [facility] have various Intellectual Disabilities including cerebral palsy), she stated she was not able to speak with Riana's beet end supervisor yesterday and will call [facility] today.
--- NOTE | 2019-01-17 11:30 | NUR ---
PATIENT AWAKE AND RESTING ON BED. NO SIGNS OF DISTRESS NOTED. MOTHER IS BY BEDSIDE. SAFETY MEASURES IN PLACE. BED IN LOW POSITION AND 1:1 SITTER BY BEDSIDE.
--- NOTE | 2019-01-17 11:56 | NUR ---
PAGED 2X DR KEE ON REGARDS OF PT'S MOTHER'S REQUEST. NO ANSWER AND LEFT A MESSAGE FOR RETURN CALL.
--- NOTE | 2019-01-17 12:01 | NUR ---
RECEIVED A CALL BACK FROM DR KEE AND INFORMED DR KEE OF PT'S MOTHER 'S REQUEST. PER DR KEE, IT'S OK TO RELEASE AND UPLIFT THE HOLD. CONFIRMED AND REPEATED 'S ORDER BY ME AND MAMMAL CONTROL AGENT.
--- NOTE | 2019-01-17 12:57 | NUR ---
Harbor Police Lieutenant Note: I called and spoke with "resident medical officer" Kwaku from [facility] , I explained to her that I would like to speak with someone regarding admitting office escort placement. She stated she does not have access to Fan Runner Riana Vallecillo notes and does not know if Riana is working on patient's placement. Kwaku told me she and Riana were not available on Wednesday01/13/19 and Wednesday01/16/19. She reported Riana is currently out of office. I asked her if someone can please assist me with placement. She stated I need to speak with Riana from [facility] and told me she was going to send a message to Riana and request for Riana to call me back. I informed KwakuGwendolyn would like to speak with her or Riana to discuss if Gwendolyn can evaluate patient at [facility]. I provided Kwaku with Gwendolyn's phone number. I informed Braille Teacher Jessie Vicente of Case Management/Social Service Dept of above information. Per Jessie Vicente, she will contact [facility] and attempt to speak with Kwaku. Addendum: 01/17/19 at 1411 by Jessie Vicente Rcd calls made to [facility] to request assistance with placement. 13:09 No answer 13:37 No answer 14:06 No answer - left voicemail requesting a call back Jessie Vicente [facility] Addendum: 01/17/19 at 1656 by Jessie Frye [employer] Lieutenant Note: I received a call a from Riana Vallecillo from [facility], she apologized for not calling me sooner and stated she has not been in the office and "has been out in the field". She stated she will begin working on patient's placement at a board and care tomorrow morning 01/18/19. I explained to her that she had told me last Wednesday01/11/19 that she was going to begin working on placement. She told me she has a protocol to follow regarding initiating finding placement. I asked her approximately how long it takes to find placement, she stated she cannot give me a time frame. I informed Braille Teacher Jessie Vicente from Case Management/Warehouse Operations Associate Dept of my conversation with Riana, she stated she will contact Riana tomorrow 01/18/19. Addendum: 01/19/19 at 0838 by Jessie Vicente Call made to [facility] galley worker Riana to follow-up on placement. Sw left a voice mail requesting a call back. Jessie Vicente, MYESHA Addendum: 01/19/19 at 1455 by Jessie BUENO Late entry for 01/18/19: Per Fan Runner Janiya, Fan Runner Bridgett from [facility] / told her [facility] cannot assist us with snf placement and referred us to contact [facility]. I informed Braille Teacher Jessie Vicente of Case Management/Warehouse Operations Associate of this. Addendum: 01/19/19 at 1458 by Jessie Frye SS Late entry for 01/18/19: Per Mandi from [facility] , patient is not appropriate for their facility, unable to accept. Per Kehinde from [facility] , patient is not appropriate for their facility, unable to accept patient.
--- NOTE | 2019-01-17 13:09 | NUR ---
Per Psych , [phone] dc'sri. SS attempting to find placement for long term care administrator care.
--- NOTE | 2019-01-17 13:12 | NUR ---
DR FERGUSON IS TALKING TO PT AND PT'S MOTHER AT BEDSIDE. NO SIGNS OF DISTRESS NOTED.
--- NOTE | 2019-01-17 14:13 | NUR ---
RECEIVED A CALL FROM DR FERGUSON. PER DR FERGUSON, PUT IN THE FOLLOWING ORDERS STAT; STOP KEPPRA STAT. START PT ON DEPAKOTE 500 MG PO BID, REPEATED AND CONFIRMED ORDERS WITH DR FERGUSON.
--- NOTE | 2019-01-17 15:02 | NUR ---
PATIENT IN BED ASLEEP. RESPONSIVE TO VERBAL AND TACTILE STIMULI. ABLE TO MAKE SOME NEEDS KNOWN. RESPIRATIONS EVEN AND UNLABORED WITH NO SOB OR RESPIRATORY DISTRESS. SKIN WARM AND DRY TO TOUCH. NO COMPLAINTS OR CONCERNS AT THIS TIME. FREQUENT CHECKS MADE. SAFETY MEASURES: HOB ELEVATED, BED IN LOWEST POSITION, AND CALL LIGHT WITHIN REACH.
--- NOTE | 2019-01-17 15:52 | NUR ---
01/17/19 RD INITIAL ASSESSMENT COMPLETED PLEASE REFER TO NUTRITION ASSESSMENT UNDER CARE ACTIVITY FOR ESTIMATED NUTRITIONAL NEEDS. 1. RECOMMEND MECHANICAL SOFT DIET 2. PROVIDE FEEDING ASSISTANCE WITH MEAL 3. ENCOURAGE PO INTAKE 4. RD TO FOLLOW-UP 5-7 DAYS, LOW RISK MITCHEL BYRNE RD REVIEWED BY KAITLYNN MATHEW RD
[2019-01-17 16:00] VITALS: BP 140/78
--- NOTE | 2019-01-17 17:02 | NUR ---
PATIENT RESTING IN BED. RESPIRATIONS EVEN AND UNLABORED WITH NO SOB OR RESPIRATORY DISTRESS. SKIN WARM AND DRY TO TOUCH. NO COMPLAINTS OR CONCERNS AT THIS TIME. SAFETY MEASURES IN PLACE: HOB ELEVATED, BED IN LOWEST POSITION, AND CALL LIGHT WITHIN REACH.
--- NOTE | 2019-01-17 19:05 | NUR ---
ENDORSED TO NIGHTSHIFT NURSE AT BEDSIDE. PT RESTING IN BED. SKIN WARM AND DRY TO TOUCH. RESPIRATIONS EVEN AND UNLABORED WITH NO SOB OR RESPIRATORY DISTRESS. SAFETY MEASURES: HOB ELEVATED, BED IN LOWEST POSITION, AND CALL LIGHT WITHIN REACH. PT IS STABLE.
--- NOTE | 2019-01-17 19:25 | NUR ---
RECEIVED PT FROM DAY SHIFT NURSE PT AAOX1 HX CEREBRAL PALSY, 5150 SITTER AT BED SIDE ALL TIME NOT AGITATION AT THIS TIME NOT IV ACCESS INITIAL ASSESSMENT DONE
[2019-01-17] MEDS ORDERED: DIVALPROEX 500 MG TABEC PO SCH (21:00)
[2019-01-17] MEDS ORDERED: levETIRAcetam 500 MG TAB PO SCH (21:00)
--- NOTE | 2019-01-17 21:00 | NUR ---
PT ON CLOSE MON;ITONEVAEH SITTER AT BED SIDE ALL TIME NOT AGITATION '. MEDICATION TAKEN ORDER
[2019-01-18] VITALS: BP 116/86
--- NOTE | 2019-01-18 01:00 | NUR ---
;PT SLEEPING WELL NOT DISTRESS NOTED SITTER AT BED SIDE ALL TIME
--- NOTE | 2019-01-18 04:00 | NUR ---
SPONGE BATH GFIVEN LINEN CHANGED REPOSITIONED Q2H , NOT DISTRESS NOTED
--- NOTE | 2019-01-18 04:40 | NUR ---
PT REMAIN QUIET , NOT AGITATION, SITTER AT BED SIDE ALL TIMES
--- NOTE | 2019-01-18 06:11 | NUR ---
AUTOMOTIVE UPHOLSTERER CALL TO INFORMED THAT PT REFUSED CT HEAD YESTERDAY,
--- NOTE | 2019-01-18 06:13 | NUR ---
PT RESTING ON BED QUIET SLEEPING WELL NOT DISTRESS NOTED AT THIS ;TIME SITTER AT BED SIDE ALL TIME
--- NOTE | 2019-01-18 07:36 | NUR ---
RECEIVED REPORT FROM NIGHT RN FOR CONTINUITY OF CARE. PATIENT IS ON 5150 HOLD FOR SUICIDAL IDEATION. PATIENT IS SITTING UP IN BED, ON ROOM AIR, VISIBLE CHEST RISE AND FALL. NO COMPLAINTS AT THIS TIME, NO AGITATION. PATIENT HAS 1:1 SITTER. NO IV LINE IN PLACE. REVIEWED POC WITH PT BUT PT IS NOT VERBALIZING UNDERSTANDING. WILL ROUND FREQUENTLY ON PT.
[2019-01-18 08:00] VITALS: BP 123/77
--- NOTE | 2019-01-18 09:48 | NUR ---
ADMINISTERED MORNING MEDS TO PT. PT TOLERATED WELL. ALL OTHER NEEDS MET. WILL CONTINUE TO ROUND FREQUENTLY ON PT.
[2019-01-18] MEDS ORDERED: DIVALPROEX SPRINKLES 125 MG CAPDR PO SCH (10:15)
[2019-01-18] MEDS ORDERED: OLANZapine 2.5 MG TAB PO SCH (10:30)
--- NOTE | 2019-01-18 11:24 | NUR ---
PT SLEEPING. ALL NEEDS MET. WILL CONTINUE TO ROUND ON PT.
--- NOTE | 2019-01-18 12:05 | NUR ---
PAGED DR. KEE THRU THEIR EXCHANGE REGARDING RE-EVALUATION. AWAITING FOR CALL BACK. ARAM ASSIGNED MADE AWARE.
--- NOTE | 2019-01-18 13:38 | NUR ---
PT RESTING IN BED. ALL NEEDS MET. WILL CONTINUE TO ROUND FREQUENTLY ON PT.
--- NOTE | 2019-01-18 15:26 | NUR ---
PT RESTING IN BED. ALL NEEDS MET. WILL CONTINUE TO ROUND FREQUENTLY ON PT.
[2019-01-18 16:00] VITALS: BP 127/73
--- NOTE | 2019-01-18 17:51 | NUR ---
PT RESTING IN BED. ALL NEEDS MET. WILL CONTINUE TO ROUND ON PT.
--- NOTE | 2019-01-18 19:34 | NUR ---
ENDORSED PT TO DEPARTMENT EDITOR FOR CONTINUITY OF CARE. PT IN STABLE CONDITION AT THIS TIME.
[2019-01-18] MEDS: DIVALPROEX SPRINKLES 125 MG CAPDR PO SCH (21:00)
[2019-01-18] MEDS: OLANZapine 2.5 MG TAB PO SCH (22:23)
--- NOTE | 2019-01-18 22:24 | NUR ---
DEPAKOATE MEDICATIONS NOT ADMINISTERED RT PER OTHER RN/ANAND THAT TOOK CARE OF HIM "MOTHER DO NOT WANT US TO GIVE THAT MEDICATION"
[2019-01-19 00:05] VITALS: BP 133/75
--- NOTE | 2019-01-19 01:18 | NUR ---
SLEEPING IN AND OUT. PT. NOTED TO BE MORE CALMER THIS SHIFT. NO RESTLESSNESS. STILL SITTER 1:1.
--- NOTE | 2019-01-19 03:47 | NUR ---
PT. BEING CLEANED UP BY CNAS RT HAD URINATED IN BED. INCONTINENT. NO NOTED IRRITABILITY. NO TEMPER TANTRUM NOTED. PT. VERY QUIET AND NOT FIGHTING WITH STAFF. SITTER 1:1 STILL.
--- NOTE | 2019-01-19 07:20 | NUR ---
RECEIVED PT FROM NIGHT NURSE. PT IN BED WITH EYES CLOSED, AROUSABLE TO SPEECH. DENIES PAIN, NO DISTRESS NOTED. NO IV. SKIN INTACT. RESPIRATIONS EVEN AND UNLABORED ON ROOM AIR. BED IN LOW POSITION. SAFETY MEASURES IN PLACE. 1:1 SITTER. WILL CONTINUE TO MONITOR.
[2019-01-19 08:00] VITALS: BP 154/74
[2019-01-19] MEDS: DIVALPROEX SPRINKLES 125 MG CAPDR PO SCH ×2 (09:00→22:00)
[2019-01-19] MEDS: OLANZapine 2.5 MG TAB PO SCH ×2 (10:11→22:00)
--- NOTE | 2019-01-19 10:13 | NUR ---
MEDICATIONS ADMINISTERED PER ORDER. PT TOLERATED WELL. NO DISTRESS NOTED. WILL CONTINUE TO MONITOR.
--- NOTE | 2019-01-19 10:30 | NUR ---
Histologist Note: Per Cannery Tender Engineer Riana Vallecillo from [facility] , she spoke with patient's mother Danae and Danae would like to take patient home upon discharge.
[2019-01-19] MEDS ORDERED: DIVA125E11 PO (11:21)
--- NOTE | 2019-01-19 11:47 | NUR ---
PT IN BED AWAKE. DENIES PAIN. NO DISTRESS NOTED. SAFETY MEASURES IN PLACE 1:1 SITTER. WILL CONTINUE TO MONITOR.
[2019-01-19] MEDS ORDERED: DIVA500T1 PO (13:16)
[2019-01-19 13:19] VITALS: BP 150/68
--- NOTE | 2019-01-19 14:12 | NUR ---
PT IN BED, ASLEEP. NO DISTRESS NOTED, FLACC 0. SAFETY MEASURES IN PLACE. 1:1 SITTER. WILL CONTINUE TO MONITOR.
--- NOTE | 2019-01-19 14:30 | NUR ---
Strategic Account Executive Note: Per Charge Nurse MD Adela spoke with patient's mother Danae and informed her patient will be discharged today and she would like to take patient home upon discharge.
--- NOTE | 2019-01-19 15:15 | NUR ---
Finish Filer Note: Papier Mache' Molder Janiya and I met with patients mother Zach to discuss patients discharge plan. She stated she already spoke with and attending MD regarding plan to discharge patient today. She told us several times that she feels very comfortable taking care of patient at home. She does not have any concerns regarding taking patient home and expressed it is her choice to take patient home. She told us patient has a nebulizer, shower bench, a walker, bedside commode, an electric, and manual wheelchair. She thinks patient might need a hospital bed. She reported she is the one who takes patient to doctors appointments or contacts [facility] to coordinate transportation to doctors appointments. She fills his prescriptions at a [facility] pharmacy right across their home and does not have any difficulty doing so. She stated one of her neighbors is available to assist her with patient at home if needed. She has had communication with Papier Mache' Molder Riana from [facility] and is planning to continue to speak with Riana if any needs arise or needs assistance. She told us all of questions/concerns have been addressed. She is in agreement with referral for home health services for home safety evaluation with any contracted [facility] home health company. She is also in agreement with referral for [facility] Transitional Care Services (for individuals who have [facility] coverage). This program will provide patient and/or patients mother with any needed community resources and/or services/referrals based on their evaluation. [facility] Transitional Care Services will follow up with patient and/or patients mother for 90 days as needed. I faxed referral to [facility] Transitional Care Services, fax number , phone number . I spoke with Hortencia from [facility] Transition Care Services intake dept. She stated she already spoke with patients mother Zach regarding their program/services and have an appointment scheduled to meet with patient/patients mother tomorrow.
--- NOTE | 2019-01-19 15:15 | NUR ---
MET WITH THE PATIENT'S MOTHER KAM TOGETHER WITH REYNALDO SHIELDS, PLEASE REFER TO REYNALDO RUIZ. Addendum: 01/19/19 at 1633 by Janiya Grey CONTACTED [facility] AT [phone], ABLE TO SPEAK TO SHERIDAN NEVAREZ REGARDING REFERRAL FOR HOME SAFETY EVAL. HE STATED HE WILL REVIEW AND WILL GIVE ME A CALL BACK. Addendum: 01/19/19 at 9157 by Janiya Grey CM CONTACTED ANGELO CANTU [facility] AT [phone], REGARDING REQUEST FOR TRANSPORTATION. SHE STATED TO GO AHEAD AND FAX THE TRANSPORTATION REQUEST FORM TO [phone]. REQUEST SENT TO THE PROVIDED FAX NUMBER. Addendum: 01/19/19 at 1651 by Janiya Grey CM RECEIVED A CALL FROM JERE OF [facility] TRANSPORTATION, HONING MACHINE TRY OUT SETTER IS WITH [facility] AT 2230 PM. [facility] DIRECTOR KATELYNN MADE AWARE.
[2019-01-19 16:00] VITALS: BP 150/68
--- NOTE | 2019-01-19 16:22 | NUR ---
VITAL SIGNS MONITORED AT THIS TIME. FLACC 0. NO DISTRESS NOTED. SAFETY MEASURES IN PLACE. SITTER 1:1. WILL CONTINUE TO MONITOR.
--- NOTE | 2019-01-19 16:56 | NUR ---
Leave message to mother [phone], patient for discharge 10:30 pm , pick pack worker by .
--- NOTE | 2019-01-19 18:30 | NUR ---
RECEIVED CALL FROM PT MOTHER. INFORMED HER OF PT PICKUP AT 1030PM, SHE VERBALIZED UNDERSTANDING AND REQUESTED PT HAVE HIS WHEELCHAIR AND THE BAG WITH IT. ALSO REQUESTED CLOTHING FOR PT.
--- NOTE | 2019-01-19 19:17 | NUR ---
REPORT GIVEN TO NIGHT NURSE FOR CONTINUITY OF CARE.
--- NOTE | 2019-01-19 19:30 | NUR ---
RECEIVED BEDSIDE REPORT FROM AM SHIFT RN YUE, FOR PT'S CONTINUITY OF CARE. PT IS LYING DOWN, ASLEEP, WITH NO SIGNS OF DISTRESS. PT WILL BE PICKED UP BY [facility], FOR DISCHARGE TO HOME. WILL MONITOR PT THROUGHOUT SHIFT.
--- NOTE | 2019-01-19 21:13 | NUR ---
PT LYING DOWN ASLEEP WITH NO SIGNS OF DISTRESS. PT'S BELONGINGS AND CLOTHES WERE TAKEN OUT FROM SECURITY FOR DISCHARGE. CHECK CASHIER CHANGED PT AND BELONGINGS ARE AT BEDSIDE. WILL CONTINUE TO MONITOR.
--- NOTE | 2019-01-19 22:00 | NUR ---
ADMINISTERED SCHEDULED MEDICATIONS ORDERED, WITH APPLESAUCE. PT TOLERATED THEM WELL. PT SHOWS NO SIGNS OF DISTRESS.
--- NOTE | 2019-01-19 22:45 | NUR ---
CALLED MOTHER FOR FINISHING POWDER PRESS OPERATOR UPDATE. [facility] CALLED AND WOULD NOT BE ABLE TO FINISHING POWDER PRESS OPERATOR PT AT THE DESIGNATED TIME. WILL BE HERE BY 0015. PT'S MOTHER VERBALIZED UNDERSTANDING. PT LYING DOWN IN BED WITH NO SIGNS OF DISTRESS. WILL CONTINUE TO MONITOR PT.
[2019-01-19 23:40] VITALS: BP 130/75
--- NOTE | 2019-01-19 23:45 | NUR ---
[facility] HYPERBARIC TECH PT TO BE DISCHARGED TO HOME. TRANSPORTATION PERSONNEL INSTRUCTED TO CALL PT'S MOTHER UPON ARRIVAL, TO BE LET IN THE [place] WHERE SHE LIVES. PT'S VS TAKEN AND CHARTED. PT IN STABLE CONDITION.
--- NOTE | 2019-01-23 14:21 | NUR ---
Broadcast Operations Engineer Note: I received a call from both Castro at [facility] and Nelly also at [facility] , they both told me they were notified by [facility] today via email they cannot accept referral after all because they do not have nursing staff available. Per Castro and Nelly, I can fax referral to [facility], phone number , fax . Per Nelly, [facility] can contact Castro for home health authorization. I faxed referral to [facility].
--- NOTE | 2019-01-23 14:52 | NUR ---
Medical Clinic Manager Note: I called and spoke with Mariam from [facility] , she stated they received referral and they will check patient's eligibility benefits. I told Castro Becerra from [facility] can provide them with home health authorization. I provided Mariam with Castro phone number. Per Mariam, she will call me back once they verify eligibility benefits and speak with Castro from [facility].
--- NOTE | 2019-01-23 16:25 | NUR ---
Lookback Coordinator Note: Per Gregor Thomas from [facility] / , they are able to accept referral and will send a nurse to patient's home. Gregor is aware patient was discharged home on 01/19/19.
== END 2019-01-19 23:45 | disposition home health service (06) | DRG 58 ==
LOC: MED 00:22 → MTU 15:57
PROVIDERS: ADMIT Internal Medicine Pulmonary Disease; ATTEND Internal Medicine Pulmonary Disease
DX: G80.9 Cerebral palsy, unspecified (principal); R45.851 Suicidal ideations; G40.909 Epilepsy, unspecified, not intractable, without status epilepticus; F94.0 Selective mutism; W06.XXXA Fall from bed, initial encounter; F29 Unspecified psychosis not due to a substance or known physiological condition; F79 Unspecified intellectual disabilities; J45.909 Unspecified asthma, uncomplicated; Z99.3 Dependence on wheelchair; Y93.89 Activity, other specified; Y92.89 Other specified places as the place of occurrence of the external cause; Y99.8 Other external cause status; Z88.8 Allergy status to other drugs, medicaments and biological substances; Z91.013 Allergy to seafood; R40.2233 Coma scale, best verbal response, inappropriate words, at hospital admission
CPT/HCPCS: 36415; 70450; 80053; 80305; 81001; 81025; 85025; 87081; 95816; 96372; 99285; G0480; G0482; J2060; J3486